=== PATIENT | female | born 1980 | race Caucasian/White ===

== ENCOUNTER → 2024-06-02 15:18 | Outpatient (REF) | payer OTHER, SELFPAY | LOC: RAD 15:18 | PROVIDERS: ATTENDING PHYSICIAN Internal Medicine | DX: D25.9 Leiomyoma of uterus, unspecified (principal) | CPT/HCPCS: 76830; 76856 ==

== ENCOUNTER → 2024-06-14 15:23 | Outpatient (REF) | payer OTHER, SELFPAY | LOC: HWWDC 15:23 | PROVIDERS: ATTENDING PHYSICIAN Internal Medicine | DX: Z12.31 Encounter for screening mammogram for malignant neoplasm of breast (principal) | CPT/HCPCS: 77063; 77067 ==